=== PATIENT | female | born 1985 | race Caucasian/White ===

== ENCOUNTER 2024-05-11 11:19 | Emergency (ER) | payer OTHER, BC, SELFPAY ==
[2024-05-11 11:19] VITALS: BP 183/104; PULSE 95; RESP 16; TEMP 36; O2SAT 100; BMI 49.0
--- NOTE | 2024-05-11 11:39 | EDS_ITS ---
HPI History of Present Illness Chief Complaint: Fall Informant: patient Narrative Narrative: Very pleasant 39-year-old female presenting to the emergency room with the chief complaint of fall. Patient states that she went to a client's house and ended fell on the ice striking the back of her head and left arm. She notes that she had a headache before the fall and taking Tylenol so she is unsure if her headache now is related to the fall or from the initial headache. She notes abrasions and pain to the lateral posterior left elbow proximal forearm region. She denies any nausea vomiting. No loss of consciousness. No vision changes. She is not on any anticoagulants. She notes that initially she had some paresthesias of the left thumb region. This has improved. PFSH PFSH Allergy/AdvReac Type Severity Reaction Status Date / Time No Known Allergies Allergy Verified 05/11/24 11:19 Social History Smoking Status: Never smoker ROS ROS ED Constitutional Constitutional ED: Denies chills, fever(s) or weight loss Eyes Eyes: Denies change in vision or diplopia ENT ENT ED: Denies ear pain, rhinorrhea or sore throat Cardiovascular Cardiovascular: Denies chest pain, orthopnea, palpitations or racing heartbeat Respiratory/Chest Respiratory/Chest: Denies cough, dyspnea or orthopnea Gastrointestinal Gastrointestinal: Denies abdominal pain, diarrhea, nausea or vomiting Genitourinary Genitourinary ED: Denies dysuria, hematuria or urinary frequency Musculoskeletal Musculoskeletal: Reports other Details: Left elbow/proximal forearm pain ; Denies arthralgias, myalgias or neck pain Integumentary Reports Abrasions; Denies abscess or rash Neurologic Neurologic: Reports headache(s); Denies weakness Psychiatric Psychiatric: Denies anxiety, depression, suicidal ideation or suicidal thoughts Endocrine Endocrinology: Denies polydipsia, polyphagia or polyuria Allergic/Immunologic Allergic/Immunologic ED: Denies mouth swelling, tongue swelling or urticaria EXAM Physical Exam Const Vital Signs: 05/11/24 11:19 05/11/24 12:07 Temperature 96.8 F L Temperature Source Temporal Pulse Rate 95 Respiratory Rate 16 Respiratory Effort Normal Respiratory Depth Normal Respiratory Pattern Normal Blood Pressure 183/104 H Blood Pressure Mean 130 Pulse Ox 100 Oxygen Delivery Method Room Air Positive well nourished, well developed and obese General Appearance ED: well developed and NAD Nutritional Appearance: obese HEENT Reports normocephalic, head/scalp atraumatic and moist mucous membranes Eyes PERRL and EOMs intact bilaterally Neck full ROM, no lymphadenopathy, supple and no JVD Resp normal respiratory effort and clear to auscultation bilaterally Cardio regular rate, regular rhythm and no murmurs GI normal to inspection, nondistended, normoactive bowel sounds and non-tender Palpation: soft Back/Spine no CVA tenderness and normal ROM Extremity Extremity Narrative: There is contusion and mild swelling of the posterior lateral aspect of the left proximal forearm and elbow. Full range of motion. Neurovascular intact distal. General Extremety ED: Negative for edema General Extremity: Negative for edema Neuro oriented x3 and CN's II-XII intact bilaterally Sensorium / Orientation: alert Motor Exam: strength 5/5 throughout Psych mental status grossly normal Mood & Affect: Negative for depressed or tearful Skin no rashes or lesions noted and no wounds MDM MDM MDM Narrative Medical decision making narrative: Differential diagnosis includes but not limited to concussion intracranial hemorrhage skull fracture forearm/elbow fracture contusion abrasion laceration Clinically I think the patient does not need CT of the head. No loss of consciousness not on any blood thinners. She is neurologically intact. My independent interpretation of the plain films of the left elbow is no acute fracture. Wounds were cleansed and dressed. Clinically I do recommend rest ice Tylenol and or Motrin for pain. If persistent symptoms follow-up with primary care History & Record Review Discussion w/independent historian: Patient Radiography Diagnostic Testing: Clinical Impression(s) from Imaging Studies Elbow X-Ray 05/11/24 11:44 IMPRESSION: No acute abnormality is seen. Reading Location: [facility] Discharge Plan Triage Chief Complaint: Fall ED Provider: Alberto Nash Dx/Rx/DC Orders Clinical Impression: Head injury, Contusion of elbow, Abrasion of elbow Instructions: ED Abrasion, ED Contusion, Elbow, ED Head Injury (Adult) Primary Care Provider: Cade Austin Referrals: [facility] [Provider Group] - 1 Week if not improving Cade Austin MD [Primary Care Provider] - Print Language: Lithuanian Disposition Disposition: Home, Self Care Discharge Date/Time: 05/11/24 12:32
--- NOTE | 2024-05-11 11:44 | RAD_ITS ---
PROCEDURE: ELBOW MIN 3 VIEWS REASON FOR EXAM: Posterior elbow abrasion due to a fall. TECHNIQUE: 3 view(s) of the left elbow were obtained. COMPARISON: None. FINDINGS: LEFT ELBOW: No visible fracture. No suspicious bone lesion. Normal alignment. No effusion. Soft tissues are unremarkable. RAD/Elbow min 3 Views IMPRESSION: No acute abnormality is seen. Reading Location: [facility]
== END 2024-05-11 12:32 | disposition home or self-care (01) ==
PROVIDERS: Emergency Provider Emergency Medicine; PCP Family Medicine; Visit Provider Emergency Medicine
DX: S09.90XA Unspecified injury of head, initial encounter (principal); S50.312A Abrasion of left elbow, initial encounter; S50.02XA Contusion of left elbow, initial encounter; W00.9XXA Unspecified fall due to ice and snow, initial encounter; E66.9 Obesity, unspecified
CPT/HCPCS: 73080; 99282